=== PATIENT | male | born 1990 | race American Indian/Alaskan Native ===

== ENCOUNTER 2017-07-05 17:32 | Emergency (ER) | payer OTHER ==
[~2017-07-05] VITALS: Ht 175.3 cm; Wt 117.9 kg
--- OUTSIDE RECORDS SUMMARY | ~2017-07-05 | XMS | Clinical Summary ---
Demographics + + + | Address | [address] | | | [place] [address] | + + + | Home Phone | | + + + | Preferred Language | Unknown | + + + | Marital Status | Unmarried Domestic Partner | + + + | Pentecostal Affiliation | Unknown | + + + | Race | or | + + + | Ethnic Group | Not or | + + + Author + + + | Author | [facility] | + + + | Organization | [facility] | + + + | Address | Unknown | + + + | Phone | Unavailable | + + + Support +------+ +---------+ + | Name | Relationship | Address | Phone | +------+ +---------+ + ECON | Unknown | | +------+ +---------+ + Care Team Providers + +------+ + | Care Actuarial Associate Name | Role | Phone | + +------+ + | Harmony Milner MD | PP | Unavailable | + +------+ + Source Comments ERICK is fully live on both [facility] Ambulatory and [facility] InPatient.[facility] Allergies + + + + [...]
--- OUTSIDE RECORDS SUMMARY | ~2017-07-05 | XMS | Clinical Summary ---
Demographics + + + | Address | [address] | | | [place] [address] | + + + | Home Phone | | + + + | Preferred Language | Unknown | + + + | Marital Status | Unmarried Domestic Partner | + + + | Adventism Affiliation | Unknown | + + + | Race | or | + + + | Ethnic Group | Not or | + + + Author + + + | Author | [facility] | + + + | Organization | [facility] | + + + | Address | Unknown | + + + | Phone | Unavailable | + + + Support +------+ +---------+ + | Name | Relationship | Address | Phone | +------+ +---------+ + ECON | Unknown | | +------+ +---------+ + Care Team Providers + +------+ + | Care Brazer Induction Name | Role | Phone | + +------+ + | Harmony Milner MD | PP | Unavailable | + +------+ + Source Comments ERICK is fully live on both [facility] Ambulatory and [facility] InPatient.[facility] Allergies + + + + [...]
[~2017-07-05 17:32] MED LIST: CELEXA10 MG PO; CYCLOBENZAPRINE10 MG PO; HYDROCODON-ACE1 EAC8 PO; NORCO 5-325 TA1 EACH PO; PROMETHAZINE HC25 M1 PO
[2017-07-05] MEDS ORDERED: TRAMADOL HCL50 MG PO (19:14)
[2017-07-05] MEDS ORDERED: PENICILLIN V P500 MG PO (19:14)
== END 2017-07-05 19:24 | disposition home or self-care (01) ==
LOC: ED 17:32
DX: K08.89 Other specified disorders of teeth and supporting structures (principal); Z91.030 Bee allergy status
CPT/HCPCS: 99283

== ENCOUNTER 2017-07-22 07:46 | Emergency (ER) | payer OTHER ==
[~2017-07-22] VITALS: Ht 175.3 cm; Wt 117.9 kg
[~2017-07-22 07:46] MED LIST changes: +PENICILLIN V P500 MG PO; +TRAMADOL HCL50 MG PO
--- OUTSIDE RECORDS SUMMARY | 2017-07-22 08:46 | XMS | Clinical Summary ---
Demographics + + + | Address | [address] | | | [place] [address] | + + + | Home Phone | | + + + | Preferred Language | Unknown | + + + | Marital Status | Unmarried Domestic Partner | + + + | Scientologist Affiliation | Unknown | + + + | Race | or | + + + | Ethnic Group | Not or | + + + Author + + + | Author | [facility] | + + + | Organization | [facility] | + + + | Address | Unknown | + + + | Phone | Unavailable | + + + Support +------+ +---------+ + | Name | Relationship | Address | Phone | +------+ +---------+ + ECON | Unknown | | +------+ +---------+ + Care Team Providers + +------+ + | Care Nurse Practitioner Per Diem Name | Role | Phone | + +------+ + | Harmony Milner MD | PP | Unavailable | + +------+ + Source Comments ERICK is fully live on both [facility] Ambulatory and [facility] InPatient.[facility] Allergies + + + + + + | Active Allergy | Reactions | Severity | Noted | Comments | | | | | Date | | + + + + + + | 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 | | | Allergenic Extract | | | 15 | | + + + + + + Current Medications No known medications Active Problems + + + | Problem | Noted Date | + + + | Abnormal liver function test | 10/21/2014 | + + + Social History + +-------+ +--------+ + | Tobacco Use | Types | Packs/Day | Years | Date | | | | | Used | | + +-------+ +--------+ + | Former Smoker | | | | Quit: 09/29/2014 | + +-------+ +--------+ + + + + | Sex Assigned at | Date Recorded | | | | + + + | Not on file | | + + + Last Filed Vital Signs + + + + | Vital Sign | Reading | Time Taken | + + + + | Blood Pressure | 128/74 | 10/21/2014 2:01 PM PDT | + + + + | Pulse | 91 | 10/21/2014 2:01 PM PDT | + + + + | Temperature | 36.7 C (98.1 F) | 10/21/2014 2:01 PM PDT | + + + + | Respiratory Rate | - | - | + + + + | Oxygen Saturation | - | - | + + + + | Inhaled Oxygen | - | - | | Concentration | | | + + + + | Weight | 103.1 kg (227 lb 3.2 | 10/21/2014 2:01 PM PDT | | | oz) | | + + + + | Height | 177.8 cm (5' 10") | 10/21/2014 2:01 PM PDT | + + + + | Body Mass Index | 32.6 | 10/21/2014 2:01 PM PDT | + + + + Plan of Treatment + + + + + | Health Maintenance | Due Date | Last Done | Comments | + + + + + | INFLUENZA VACCINE | | 06/23/2009 | | | (FLU SHOT) | 7 | | | + + + + + Results Not on filefrom Last 3 Months
--- OUTSIDE RECORDS SUMMARY | 2017-07-22 08:46 | XMS | Clinical Summary ---
Demographics + + + | Address | [address] | | | [place] [address] | + + + | Home Phone | | + + + | Preferred Language | Unknown | + + + | Marital Status | Unmarried Domestic Partner | + + + | Synagogue Affiliation | Unknown | + + + | Race | or | + + + | Ethnic Group | Not or | + + + Author + + + | Author | [facility] | + + + | Organization | [facility] | + + + | Address | Unknown | + + + | Phone | Unavailable | + + + Support +------+ +---------+ + | Name | Relationship | Address | Phone | +------+ +---------+ + ECON | Unknown | | +------+ +---------+ + Care Team Providers + +------+ + | Care Clinical Office Technician Name | Role | Phone | + +------+ + | Harmony Milner MD | PP | Unavailable | + +------+ + Source Comments ERICK is fully live on both [facility] Ambulatory and [facility] InPatient.[facility] Allergies + + + + + [...]
[2017-07-22] MEDS ORDERED: ONDANSETRON ODT8 MG PO (10:36)
== END 2017-07-22 10:46 | disposition home or self-care (01) ==
LOC: ED 07:46
DX: K52.9 Noninfective gastroenteritis and colitis, unspecified (principal); Z90.49 Acquired absence of other specified parts of digestive tract; Z91.030 Bee allergy status
CPT/HCPCS: 74177; 80053; 81001; 82150; 83690; 85025; 87502; 96361; 96374; 96375; 99284; J1885; J2405; J7030; Q9967

== ENCOUNTER 2017-07-28 07:43 | Emergency (ER) | payer OTHER ==
[~2017-07-28] VITALS: Ht 175.3 cm; Wt 117.9 kg
[~2017-07-28 07:43] MED LIST changes: +ONDANSETRON ODT8 MG PO
--- OUTSIDE RECORDS SUMMARY | 2017-07-28 07:53 | XMS | Clinical Summary ---
Demographics + + + | Address | [address] | | | [place] [address] | + + + | Home Phone | | + + + | Preferred Language | Unknown | + + + | Marital Status | Unmarried Domestic Partner | + + + | Sabianist Affiliation | Unknown | + + + | Race | or | + + + | Ethnic Group | Not or | + + + Author + + + | Author | [facility] | + + + | Organization | [facility] | + + + | Address | Unknown | + + + | Phone | Unavailable | + + + Support +------+ +---------+ + | Name | Relationship | Address | Phone | +------+ +---------+ + ECON | Unknown | | +------+ +---------+ + Care Team Providers + +------+ + | Care Gem Expert Name | Role | Phone | + +------+ + | Harmony Milner MD | PP | Unavailable | + +------+ + Source Comments ERICK is fully live on both [facility] Ambulatory and [facility] InPatient.[facility] Allergies + + + + [...]
--- OUTSIDE RECORDS SUMMARY | 2017-07-28 07:55 | XMS | Clinical Summary ---
Demographics + + + | Address | [address] | | | [place] [address] | + + + | Home Phone | | + + + | Preferred Language | Unknown | + + + | Marital Status | Unmarried Domestic Partner | + + + | Faith Affiliation | Unknown | + + + | Race | or | + + + | Ethnic Group | Not or | + + + Author + + + | Author | [facility] | + + + | Organization | [facility] | + + + | Address | Unknown | + + + | Phone | Unavailable | + + + Support +------+ +---------+ + | Name | Relationship | Address | Phone | +------+ +---------+ + ECON | Unknown | | +------+ +---------+ + Care Team Providers + +------+ + | Care Associate Professor Of Medicine Name | Role | Phone | + +------+ + | Harmony Milner MD | PP | Unavailable | + +------+ + Source Comments ERICK is fully live on both [facility] Ambulatory and [facility] InPatient.[facility] Allergies + + + + [...]
[2017-07-28] MEDS ORDERED: ZOFRAN ODT4 MG PO (10:04)
[2017-07-28] MEDS ORDERED: IBUPROFEN600 MG PO (10:04)
== END 2017-07-28 10:07 | disposition home or self-care (01) ==
LOC: ED 07:43
DX: K76.0 Fatty (change of) liver, not elsewhere classified (principal); Z90.49 Acquired absence of other specified parts of digestive tract; Z91.030 Bee allergy status
CPT/HCPCS: 76705; 80053; 81001; 83690; 85025; 96374; 96375; 99284; J1885; J2405; J7030

== ENCOUNTER 2017-08-26 08:51 | Emergency (ER) | payer OTHER ==
[~2017-08-26] VITALS: Ht 175.3 cm; Wt 117.5 kg
--- OUTSIDE RECORDS SUMMARY | ~2017-08-26 | XMS | Clinical Summary ---
Demographics + + + | Address | [address] | | | [place] [address] | + + + | Home Phone | | + + + | Preferred Language | Unknown | + + + | Marital Status | Unmarried Domestic Partner | + + + | Sikhism Affiliation | Unknown | + + + | Race | or | + + + | Ethnic Group | Not or | + + + Author + + + | Author | [facility] | + + + | Organization | [facility] | + + + | Address | Unknown | + + + | Phone | Unavailable | + + + Support + + +---------+ + | Name | Relationship | Address | Phone | + + +---------+ + | Stiven Star II | ECON | Unknown | | + + +---------+ + Care Team Providers + +------+ + | Care Clinical Data Associate Name | Role | Phone | + +------+ + | Harmony Milner MD | PP | Unavailable | + +------+ + Source Comments ERICK is fully live on both [facility] Ambulatory and [facility] InPatient.[facility] Allergies + + + + [...]
--- OUTSIDE RECORDS SUMMARY | ~2017-08-26 | XMS | Clinical Summary ---
Demographics + + + | Address | [address] | | | [place] [address] | + + + | Home Phone | | + + + | Preferred Language | Unknown | + + + | Marital Status | Unmarried Domestic Partner | + + + | Quaker Affiliation | Unknown | + + + | Race | or | + + + | Ethnic Group | Not or | + + + Author + + + | Author | [facility] | + + + | Organization | [facility] | + + + | Address | Unknown | + + + | Phone | Unavailable | + + + Support + + +---------+ + | Name | Relationship | Address | Phone | + + +---------+ + | Stiven Star II | ECON | Unknown | | + + +---------+ + Care Team Providers + +------+ + | Care Heeler Machine Name | Role | Phone | + +------+ + | Harmony Milner MD | PP | Unavailable | + +------+ + Source Comments ERICK is fully live on both [facility] Ambulatory and [facility] InPatient.[facility] Allergies + + + [...]
[~2017-08-26 08:51] MED LIST changes: +IBUPROFEN600 MG PO; +ZOFRAN ODT4 MG PO
[2017-08-26] MEDS ORDERED: CLARITHROMYCIN500 MG PO (09:05)
[2017-08-26] MEDS ORDERED: OMEPRAZOLE20 MG PO (09:05)
[2017-08-26] MEDS ORDERED: AMOXICILLIN500 MG PO (09:05)
[2017-08-26] MEDS ORDERED: ROBAXIN-750750 MG PO (10:06)
== END 2017-08-26 10:38 | disposition home or self-care (01) ==
LOC: ED 08:51
DX: R51 Headache (principal); S90.112A Contusion of left great toe without damage to nail, initial encounter; Z88.8 Allergy status to other drugs, medicaments and biological substances; Z79.899 Other long term (current) drug therapy; Z79.2 Long term (current) use of antibiotics; W20.8XXA Other cause of strike by thrown, projected or falling object, initial encounter
CPT/HCPCS: 73660; 96372; 99283; J1885

== ENCOUNTER 2019-03-12 14:17 | Emergency (ER) | payer MEDICAID, OTHER ==
[~2019-03-12] VITALS: Ht 175.3 cm; Wt 128.4 kg
[~2019-03-12 14:17] MED LIST changes: +AMOXICILLIN500 MG PO; +CLARITHROMYCIN500 MG PO; +IBUPROFEN200 M1 PO; +OMEPRAZOLE20 MG PO; +ROBAXIN-750750 MG PO
== END 2019-03-12 16:43 | disposition home or self-care (01) ==
LOC: ED 14:17
DX: S00.81XA Abrasion of other part of head, initial encounter (principal); S40.812A Abrasion of left upper arm, initial encounter; F41.9 Anxiety disorder, unspecified; Y04.0XXA Assault by unarmed brawl or fight, initial encounter; Z79.899 Other long term (current) drug therapy; Z91.013 Allergy to seafood
CPT/HCPCS: 99283

== ENCOUNTER 2022-04-24 16:12 | Emergency (ER) | payer OTHER ==
[~2022-04-24] VITALS: Ht 175.3 cm; Wt 128.4 kg
== END 2022-04-24 19:22 | disposition home or self-care (01) ==
LOC: ED 16:12
DX: S61.411A Laceration without foreign body of right hand, initial encounter (principal); Z91.030 Bee allergy status; W26.9XXA Contact with unspecified sharp object(s), initial encounter
CPT/HCPCS: 12001; 99282-25

== ENCOUNTER 2022-11-12 14:46 | Emergency (ER) | payer OTHER ==
[~2022-11-12] VITALS: Ht 175.3 cm; Wt 128.4 kg
[2022-11-12] MEDS ORDERED: CEPHALEXIN500 M1 PO (17:34)
[2022-11-12] MEDS ORDERED: HYDROCODON-ACE1 EA10 PO (17:34)
[2022-11-12 19:14] VITALS: BP 110/60
== END 2022-11-12 17:34 | disposition home or self-care (01) ==
LOC: ED 14:46
DX: S62.632A Displaced fracture of distal phalanx of right middle finger, initial encounter for closed fracture (principal); W55.11XA Bitten by horse, initial encounter; Z23 Encounter for immunization
CPT/HCPCS: 29130; 73140; 80053; 85025; 90471; 90714; 99284-25; G0480; J0690; J3010; J7030

== ENCOUNTER 2025-02-10 22:20 | Emergency (ER) | payer OTHER ==
[~2025-02-10] VITALS: Ht 175.3 cm; Wt 111.6 kg
[~2025-02-10 22:20] MED LIST changes: +CEPHALEXIN500 M1 PO; +HYDROCODON-ACE1 EA10 PO
[2025-02-10 22:43] LABS: BLOOD/HGB, URINE TRACE-I (Negative); KETONE, URINE NEGATIVE (Negative); LEUK ESTERASE, URINE NEGATIVE (negative); NITRITE, URINE NEGATIVE (negative)
[2025-02-10] MEDS ORDERED: LACTATED RINGER'S 1,000 ML IV ONE (22:45)
[2025-02-10] MEDS ORDERED: MORPHINE SULFATE 4 MG/ML VIAL IV ONE (22:45)
[2025-02-10 22:48] LABS: EPITHELIAL CELLS, URINE SQUAMOUS 1+ /lpf (0-1+)
[2025-02-10 22:49] LABS: BACTERIA, URINE RARE /hpf (negative); CASTS, URINE NONE SEEN \\lpf; CRYSTALS, URINE NONE SEEN (0-1+); REFLEX CULTURE, URINE No (No)
[2025-02-10 22:57] LABS: AMPHETAMINES, URINE NEGATIVE (NEGATIVE); BARBITURATES, URINE NEGATIVE (NEGATIVE); BENZODIAZEPINE, URINE NEGATIVE (NEGATIVE); CANNABINOID, URINE POSITIVE (NEGATIVE); COCAINE, URINE NEGATIVE (NEGATIVE); ECSTASY, URINE NEGATIVE (NEGATIVE); FENTANYL, URINE NEGATIVE (NEGATIVE); METHADONE, URINE NEGATIVE (NEGATIVE); OPIATES, URINE NEGATIVE (NEGATIVE); OXYCODONE, URINE NEGATIVE (NEGATIVE); PHENCYCLIDINE, URINE NEGATIVE (NEGATIVE)
[2025-02-10 22:57] LABS: BASOPHILS 0.4 % (0.2-1.2); EOSINOPHILS 0.5 % (0.8-7.0); LYMPHOCYTES 14.5 % (21.8-53.1); MCH 28.1 PG (25.7-32.2); MCHC 32.8 g/dL (32.3-36.5); MCV 85.4 fL (79.0-92.2); MONOCYTES 7.7 % (5.3-12.2); NEUTROPHILS 75.9 % (34.0-67.9); RBC 5.56 M/uL (4.63-6.08)
[2025-02-10 23:16] LABS: ALCOHOL, MEDICAL 235.0 ng/dL (<3); ALT (SGPT) 68.0 U/L (14-59); AST (SGOT) 51.0 U/L (15-37); GLOMERULAR FILTRATION RATE,EST 121.0 mL/min (>60); PROTEIN, TOTAL 7.5 g/dL (6.4-8.2); UREA NITROGEN 9.0 mg/dL (7-18)
[2025-02-10 23:31] LABS: ABO O; RH POSITIVE
[2025-02-10 23:32] LABS: ANTIBODY SCREEN NEGATIVE
[2025-02-11 09:07] VITALS: BP 138/76
== END 2025-02-11 09:11 | disposition home or self-care (01) ==
LOC: ED 22:20
PROVIDERS: Family Medicine
DX: S01.111A Laceration without foreign body of right eyelid and periocular area, initial encounter (principal); S30.1XXA Contusion of abdominal wall, initial encounter; R45.851 Suicidal ideations; Z91.030 Bee allergy status; Y04.2XXA Assault by strike against or bumped into by another person, initial encounter
CPT/HCPCS: 36415; 70450; 70486; 71260; 72125; 74177; 80053; 80307; 81001; 85025; 86850; 86900; 86901; 99284; G0480; J7121; Q9967